=== PATIENT | female | born 1975 | race Two or more races ===

== ENCOUNTER 2023-01-11 08:27 | Emergency (ER) | payer MEDICAID ==
[~2023-01-11] VITALS: Ht 160 cm; Wt 100.0 kg
[2023-01-11 08:37] VITALS: O2SAT 100
[2023-01-11] MEDS ORDERED: IBUPROFEN 600MG TABLET PO STA (08:55)
[2023-01-11 09:32] LABS: CLARITY URINE CLOUDY (CLEAR); COLOR URINE ORANGE (YELLOW); GLUCOSE URINE NEGATIVE (NEGATIVE); KETONES URINE NEGATIVE (NEGATIVE); LEUKOCYTE ESTERASE URINE 1+ (NEGATIVE); NITRITE URINE NEGATIVE (NEGATIVE); OCCULT BLOOD URINE 3+ (NEGATIVE); PH URINE 5.5 (4.5-8.0); PROTEIN URINE 1+ (NEGATIVE); SPECIFIC GRAVITY URINE 1.018 (1.005-1.030); UROBILINOGEN URINE 0.2 E.U./dL (0.2-1.0)
[2023-01-11 09:35] LABS: RBC URINE TNTC /hpf (0-2); SQUAMOUS EPITHELIAL CELL URINE 1+ /lpf (RARE/1+); YEAST URINE NONE SEEN
[2023-01-11] MEDS ORDERED: NITR-87 MT (09:53)
[2023-01-11] MEDS ORDERED: IBUP-2029 MT (09:53)
[2023-01-11 09:59] LABS: BACTERIA URINE 1+
[2023-01-11 11:21] VITALS: BP 145/82; PULSE 77; RESP 18
== END 2023-01-11 11:22 | disposition home or self-care (01) ==
LOC: ER 08:27
DX: B34.9 Viral infection, unspecified (principal); N30.90 Cystitis, unspecified without hematuria; I10 Essential (primary) hypertension; Z88.0 Allergy status to penicillin; Z98.890 Other specified postprocedural states
CPT/HCPCS: 71045; 81003; 99284